=== PATIENT | male | born 1955 | race Caucasian/White ===

== ENCOUNTER → 2017-02-02 | Outpatient (CLI) | payer BC, OTHER ==
[2017-02-02 16:27] LABS: ANION GAP 6 MEQ/L (8-16); BLOOD UREA NITROGEN 16 MG/DL (7-18); CALCIUM LEVEL 8.7 MG/DL (8.8-10.2); CARBON DIOXIDE LEVEL 30 MEQ/L (21-32); CHLORIDE LEVEL 105 MEQ/L (98-107); CREATININE FOR GFR 1.07 MG/DL (0.70-1.30); GLOMERULAR FILTRATION RATE > 60.0 (>49); GLUCOSE, FASTING 116 MG/DL (80-110); MAGNESIUM LEVEL 2.1 MG/DL (1.8-2.4); POTASSIUM SERUM 3.4 MEQ/L (3.5-5.1); SODIUM LEVEL 141 MEQ/L (136-145)
== END ==
LOC: M LAB 15:36
PROVIDERS: ATTEND Internal Medicine Gastroenterology
DX: R93.3 Abnormal findings on diagnostic imaging of other parts of digestive tract (principal)

== ENCOUNTER → 2017-07-24 | Outpatient (CLI) | payer BC, OTHER ==
[2017-07-24 16:49] LABS: TOTAL 25(OH) VITAMIN D 32.1 NG/ML (30.0-100.0)
== END ==
LOC: M LAB 15:39
DX: E55.9 Vitamin D deficiency, unspecified (principal)
CPT/HCPCS: 82306

== ENCOUNTER → 2019-02-13 | Outpatient (CLI) | payer BC, OTHER ==
--- NOTE | 2019-02-14 15:12 | SLEEPCENT ---
DATE OF STUDY: 02/13/2019 ORDERED BY: Dr. Woo Nocturnal polysomnography was performed for evaluation of sleep physiology in this patient with a history of excessive somnolence and nonrestorative sleep who has comorbidities of hypertension. 6 hours and 50 minutes of data were reviewed. There were 350.5 minutes of sleep identified. Sleep latency was normal at 7 minutes. Rapid eye movement (REM) latency was normal at 82 minutes. Sleep architecture showed initial fragmentation. Improvement was seen following interventions. Overall sleep efficiency was 86.4%. The patient's electrocardiogram showed sinus rhythm with an average heart rate of 56 beats per minute. Rate ranged 45-75. Electroencephalogram (EEG) showed normal waveforms for awake and sleep. There were 215 respiratory events identified of 10 seconds in duration or greater for an apnea-hypopnea index of 36.8. The events were not exclusive to sleep stage and were associated oxygen desaturations into 60s. Having clearly established the presence of obstructive sleep apnea syndrome early in testing the study was stopped shortly after midnight for the application of pressure therapy. The patient was fit with a Anomo Quattro full-face mask of medium size; 5 cm of water pressure were applied to the circuit and the lights were extinguished. Throughout the remaining hours of testing pressure titration was performed to a pressure of 12 cm. Some central apneas emerged at this pressure but sleep progression improved and no significant oxygen desaturations were seen. IMPRESSION: Severe obstructive sleep apnea syndrome (G47.33). Apnea-hypopnea index 36.8. RECOMMENDATIONS: Initiation of pressure therapy at 12 cm of water would be reasonable based on the results of the study. Close clinical followup is recommended. Should the patient experience incomplete resolution of symptoms, referral back to the sleep disorder center for a full night titration would be recommended.
== END ==
LOC: M SLEEP 20:00
PROVIDERS: ATTEND Internal Medicine Pulmonary Disease
DX: G47.33 Obstructive sleep apnea (adult) (pediatric) (principal)

== ENCOUNTER → 2019-09-08 | Outpatient (CLI) | payer BC, OTHER ==
--- NOTE | 2019-09-14 11:08 | SLEEPCENT ---
DATE OF PROCEDURE: 09/08/2019 ORDERED BY: Dr. Woo Nocturnal polysomnography was performed for titration of pressure therapy in this patient with obstructive sleep apnea syndrome. Apnea-hypopnea index of 36.8. For testing the patient was fit with a [employer]Med Quattro full-face mask of large size; 8 cm of water pressure were initially applied to the circuit and the lights were extinguished. 6 hours and 49 minutes of data were reviewed. There were 264.5 minutes of sleep identified. Sleep latency was mildly prolonged at 15.5 minutes. Rapid eye movement (REM) latency was short at 57 minutes. Sleep architecture was fairly good with 4 REM cycles. There was some fragmentation noted. Overall sleep efficiency was 65.8%. The electrocardiogram showed a sinus rhythm with an average heart rate of 55 beats per minute. Electroencephalogram (EEG) showed normal waveforms for awake and sleep. The patient did struggle with mask fit during the study and some shoulder pain. However, best sleep felt to be achieved in a CPAP pressure of +14. Mild hypopneic patterning was seen, but minimal oxygen desaturations at this level. Limb activity was noted that, but there were no train of events. IMPRESSION: Obstructive sleep apnea syndrome (G47.33). RECOMMENDATIONS: Nightly use of pressure therapy 14 cm of water.
== END ==
LOC: M SLEEP 20:00
PROVIDERS: ATTEND Internal Medicine Pulmonary Disease
DX: G47.33 Obstructive sleep apnea (adult) (pediatric) (principal)

== ENCOUNTER → 2020-08-24 | Outpatient (CLI) | payer BC, OTHER ==
--- NOTE | 2020-08-26 11:30 | REP ---
INDICATION: LIVER CYST COMPARISON: 06/23/2018 TECHNIQUE: Real time prado scale ultrasound examination using curved array transducer. FINDINGS: Liver demonstrates innumerable cysts measuring up to 10 cm maximal diameter in the right lobe and 6 cm diameter in the left lobe similar to prior examination. Pancreas is incompletely evaluated due to interposed bowel gas. The gallbladder is normal and without gallstones, wall thickening, or pericholecystic fluid. Previously identified small polyps are not visualized on current examination. No biliary ductal dilatation is appreciated and the common bile duct measures 5.0 mm diameter. Right kidney is normal in reniform shape without hydronephrosis and measures 11.7 x 5.2 x 5.8 cm with 9 mm lower pole cyst. No ascites in the visualized right upper quadrant. IMPRESSION: 1. Hepatic cysts similar to prior examination. <Electronically signed by Panda Mejia > 08/26/20 1126
== END ==
LOC: M RAD 09:24
PROVIDERS: ATTEND Nurse Practitioner Family
DX: K76.89 Other specified diseases of liver (principal); K57.30 Diverticulosis of large intestine without perforation or abscess without bleeding; K44.9 Diaphragmatic hernia without obstruction or gangrene; K21.9 Gastro-esophageal reflux disease without esophagitis; Z86.010 Personal history of colon polyps

== ENCOUNTER 2023-01-17 08:40 | Observation (INO) | payer MEDICARE, BC, OTHER ==
[~2023-01-17] VITALS: Ht 182.9 cm; Wt 126.9 kg
[2023-01-17] MEDS ORDERED: ISOVUE-370 76% 100ML VIAL As Ordered ONE (09:03)
[2023-01-17 09:24] LABS: BASO % 0.4 % (0.0-1.0); EOS # 0.2 10^3/uL (0.0-0.5); HEMATOCRIT 42.6 % (42.0-52.0); HEMOGLOBIN 14.5 g/dl (13.5-17.5); LYMPH # 1.7 10^3/uL (1.5-5.0); MEAN CORPUSCULAR HEMOGLOBIN 31.5 pg (27.0-33.0); MEAN CORPUSCULAR VOLUME 92.6 fl (80.0-96.0); MONO # 0.7 10^3/uL (0.0-0.8); NEUTROPHILS # 4.1 10^3/uL (1.5-8.5); NEUTROPHILS % 60.7 % (36.0-66.0); PLATELET COUNT, AUTOMATED 199 10^3/uL (150-450); WHITE BLOOD COUNT 6.8 10^3/uL (4.0-10.0)
[2023-01-17 09:37] LABS: INR 1.22
[2023-01-17 09:38] LABS: PARTIAL THROMBOPLASTIN TIME 30.4 SECONDS (24.8-34.2)
[2023-01-17 09:50] LABS: CK-MB VALUE MASS 1.3 NG/ML (<3.6)
[2023-01-17 09:51] LABS: BLOOD UREA NITROGEN 15 MG/DL (9-23); CALCIUM LEVEL 8.7 MG/DL (8.3-10.6); CARBON DIOXIDE LEVEL 28 MMOL/L (20-31); CHLORIDE LEVEL 106 MMOL/L (98-107); CREATININE FOR GFR 0.99 MG/DL (0.70-1.30); GLOMERULAR FILTRATION RATE > 60.0 (>49); GLUCOSE, FASTING 110 MG/DL (74-106); POTASSIUM SERUM 4.1 MMOL/L (3.5-5.1); SODIUM LEVEL 141 MMOL/L (136-145)
[2023-01-17 09:56] LABS: CPK CREATINE PHOSPHOKINASE 135 U/L (46-171); MB/CK RELATIVE INDEX 0.96 (< OR =4)
[2023-01-17 09:57] LABS: RSV AMPLIFICATION NEGATIVE (NEGATIVE)
[2023-01-17] MEDS ORDERED: MED REC IN PROGRESS XX SCH (11:00)
[2023-01-17] MEDS ORDERED: LISI20TA37 PO (11:06)
[2023-01-17] MEDS ORDERED: OMEP-173 PO (11:06)
[2023-01-17] MEDS ORDERED: VITA1CHW7 PO (11:06)
[2023-01-17] MEDS ORDERED: ATORVASTATIN 20 MG TAB PO ONE (11:15)
[2023-01-17] MEDS ORDERED: HOME MED LIST COMPLETE! XX SCH (11:15)
[2023-01-17] MEDS ORDERED: ASPIRIN 81MG CHEW TABLET PO ONE (11:15)
[2023-01-17] MEDS ORDERED: ACETAMINOPHEN TAB 650MG DOSE (2X325MG) PO PRN (11:45)
[2023-01-17 12:54] LABS: THYROID STIMULATING HORMONE 1.808 uIU/ML (0.55-4.78)
[2023-01-17 13:00] LABS: HEMOGLOBIN A1c 5.1 % (4.0-6.0)
[2023-01-17 14:05] VITALS: BP 139/67; TEMP 97.9; O2SAT 96
[2023-01-17 14:10] VITALS: BP 139/67; TEMP 97.9
[2023-01-17 16:10] VITALS: BP 133/63; TEMP 97.7
[2023-01-17] MEDS: ENOXAPARIN 40MG/0.4ML SYRINGE (J1650 PER 10MG) SC SCH (16:39)
[2023-01-17 19:36] VITALS: BP 102/56; TEMP 98; O2SAT 96
[2023-01-17 23:22] VITALS: BP 120/73; TEMP 97.3; O2SAT 97
[2023-01-18 01:07] VITALS: BP 121/57
[2023-01-18 03:50] VITALS: BP 110/61; TEMP 97; O2SAT 96
[2023-01-18 06:01] LABS: BASO % 0.6 % (0.0-1.0); EOS # 0.2 10^3/uL (0.0-0.5); EOS % 3.5 % (0.0-3.0); HEMATOCRIT 41.8 % (42.0-52.0); HEMOGLOBIN 14.1 g/dl (13.5-17.5); LYMPH # 1.5 10^3/uL (1.5-5.0); LYMPH % 23.4 % (24.0-44.0); MEAN CORPUSCULAR HEMOGLOBIN 30.9 pg (27.0-33.0); MEAN CORPUSCULAR HGB CONC 33.7 g/dl (32.0-36.5); MEAN CORPUSCULAR VOLUME 91.7 fl (80.0-96.0); MONO # 0.9 10^3/uL (0.0-0.8); MONO % 13.6 % (2.0-8.0); NEUTROPHILS # 3.8 10^3/uL (1.5-8.5); NEUTROPHILS % 57.8 % (36.0-66.0); PLATELET COUNT, AUTOMATED 191 10^3/uL (150-450); RED BLOOD COUNT 4.56 10^6/uL (4.30-6.10); WHITE BLOOD COUNT 6.6 10^3/uL (4.0-10.0)
[2023-01-18 06:26] LABS: BLOOD UREA NITROGEN 17 MG/DL (9-23); CALCIUM LEVEL 8.7 MG/DL (8.3-10.6); CARBON DIOXIDE LEVEL 26 MMOL/L (20-31); CHLORIDE LEVEL 103 MMOL/L (98-107); CHOLESTEROL LEVEL 153 MG/DL (<200); CHOLESTEROL RISK RATIO 5.34 (<5); CREATININE FOR GFR 0.82 MG/DL (0.70-1.30); GLOMERULAR FILTRATION RATE > 60.0 (>49); GLUCOSE, FASTING 92 MG/DL (74-106); HDL CHOLESTEROL 28.6 MG/DL (>40); LDL CHOLESTEROL 109.2 MG/DL (<100); NON-HDL-C 124.4 MG/DL; POTASSIUM SERUM 4.1 MMOL/L (3.5-5.1); SODIUM LEVEL 137 MMOL/L (136-145); TRIGLYCERIDES LEVEL 76 MG/DL (<150)
[2023-01-18 07:42] VITALS: BP 136/78; TEMP 97.1; O2SAT 97
[2023-01-18] MEDS ORDERED: ASPI81TAEC PO (08:22)
[2023-01-18] MEDS ORDERED: ATOR80TA59 PO (08:22)
[2023-01-18] MEDS: ENOXAPARIN 40MG/0.4ML SYRINGE (J1650 PER 10MG) SC SCH (08:40)
[2023-01-18] MEDS ORDERED: VITAMIN D 1,000 INTERNATIONAL UNITS TABLET PO SCH (09:00)
[2023-01-18] MEDS ORDERED: ASPIRIN 81MG ENTERIC TABLET PO SCH (09:00)
[2023-01-18] MEDS ORDERED: OMEPRAZOLE 20MG CAP PO SCH (09:00)
[2023-01-18] MEDS ORDERED: ATORVASTATIN 20 MG TAB PO SCH (09:00)
== END 2023-01-18 11:08 | disposition home or self-care (01) ==
LOC: M ED 08:40 → M ED INP 08:41 → M PCU 13:59
PROVIDERS: ADMIT Internal Medicine; ATTEND Internal Medicine
DX: G45.9 Transient cerebral ischemic attack, unspecified (principal); I10 Essential (primary) hypertension; R01.1 Cardiac murmur, unspecified; N28.1 Cyst of kidney, acquired; K76.89 Other specified diseases of liver; K21.9 Gastro-esophageal reflux disease without esophagitis; Z79.82 Long term (current) use of aspirin; Z79.899 Other long term (current) drug therapy
CPT/HCPCS: 36415; 70450; 70496; 70498; 70551; 71045; 80047; 80048; 80061; 82550; 82553; 83036; 84443; 84484; 85025; 85610; 85730; 86850; 86900; 86901; 87631; 93005; 93041; 94760; 96372; 97161; 99285; G0378; J1650; Q9967

== ENCOUNTER → 2023-02-20 | Outpatient (CLI) | payer MEDICARE, BC, OTHER ==
[~2023-02-20] MED LIST: ASPI81TAEC PO; ATOR80TA59 PO; LISI20TA37 PO; OMEP-173 PO; VITA1CHW7 PO
== END ==
LOC: M WUC 08:53
PROVIDERS: ATTEND Physician Assistant
DX: M25.562 Pain in left knee (principal)

== ENCOUNTER → 2024-02-29 | Outpatient (CLI) | payer MEDICARE, BC | LOC: M RAD 08:29 | PROVIDERS: ATTEND Internal Medicine Gastroenterology | DX: K76.89 Other specified diseases of liver (principal); R16.0 Hepatomegaly, not elsewhere classified; K22.70 Barrett's esophagus without dysplasia; K44.9 Diaphragmatic hernia without obstruction or gangrene; K21.9 Gastro-esophageal reflux disease without esophagitis; Q61.3 Polycystic kidney, unspecified; K82.4 Cholesterolosis of gallbladder; Z86.0100 Personal history of colon polyps, unspecified ==